=== PATIENT | female | born 1940 | race Two or more races ===

== ENCOUNTER → 2019-05-12 | Outpatient (CLI) | payer OTHER | END | disposition home or self-care (01) | LOC: RAD 12:44 | DX: M25.561 Pain in right knee (principal) ==

== ENCOUNTER 2019-06-11 07:36 | Outpatient (CLI) | payer OTHER | END 2019-06-11 07:46 | disposition home or self-care (01) | LOC: LAB 07:36 | DX: E21.2 Other hyperparathyroidism (principal); E55.9 Vitamin D deficiency, unspecified; M85.88 Other specified disorders of bone density and structure, other site; E88.89 Other specified metabolic disorders; M81.8 Other osteoporosis without current pathological fracture; E56.1 Deficiency of vitamin K ==